=== PATIENT | female | born 1955 | race Caucasian/White ===

== ENCOUNTER 2017-08-18 21:26 | Inpatient (IN) | payer MEDICARE ==
[2017-08-18] MEDS ORDERED: FUROSEMIDE INJ/PF 20 MG/2 ML SDV IV ONE (21:34)
--- NOTE | 2017-08-18 21:37 | ER Document Report ---
ED General - General Stated Complaint: SHORTNESS OF BREATH Time Seen by Provider: 08/18/17 21:34 Cannot obtain history due to: Unstable vital signs Notes: Patient is a 61 year old female with a past medical history of hypertension, congestive heart failure, prior occurrences of flash pulmonary edema who presents in acute respiratory distress. Patient is currently traveling through the [facility], was becoming progressively more short of breath while in the vehicle. EMS was subsequently called the patient appear to be having significant difficulty breathing. On EMS arrival patient was noted to be saturating in the 50s with severe hypertension with systolics in the low 200s. She was placed on CPAP, Nitropaste was applied, and she was subsequently transported to the hospital. Additional history is unable to be obtained secondary to the patient's respiratory distress at time of arrival. - Related Data Allergies/Adverse Reactions: steroids Allergy (Uncoded 08/18/17 21:46) Past Medical History - General Information source: Patient, Emergency Med Personnel Cannot obtain history due to: Unstable vital signs - Social History Smoking Status: Never Smoker Frequency of alcohol use: None Drug Abuse: None Lives with: Spouse/Significant other Family History: Reviewed & Not Pertinent Review of Systems - Review of Systems Notes: Constitutional: Negative for fever. HENT: Negative for sore throat. Eyes: Negative for visual changes. Cardiovascular: Negative for chest pain. Respiratory: Positive for shortness of breath. Gastrointestinal: Negative for abdominal pain, vomiting or diarrhea. Genitourinary: Negative for dysuria. Musculoskeletal: Negative for back pain. Skin: Negative for rash. Neurological: Negative for headaches, weakness or numbness. 10 point ROS negative except as marked above and in HPI. Physical Exam - Vital signs Vitals: Resp Pulse Ox 22 H 100 08/18/17 21:27 08/18/17 21:27 Interpretation: Normal Notes: PHYSICAL EXAMINATION: GENERAL: Appears generally unwell, in moderate to severe respiratory distress on BiPAP HEAD: Atraumatic, normocephalic. EYES: Pupils equal round and reactive to light, extraocular movements intact, sclera anicteric, conjunctiva are normal. ENT: nares patent, oropharynx clear without exudates. Moist mucous membranes. NECK: Normal range of motion, supple without lymphadenopathy LUNGS: Tachypnea with respirations of 33-34 breaths per minute. Globally diminished air movement in all lung leos with scattered rales throughout. HEART: Regular rate and rhythm without murmurs ABDOMEN: Soft, nontender, normoactive bowel sounds. No guarding, no rebound. No masses appreciated. EXTREMITIES: Normal range of motion, 1+ pitting edema that is equal and symmetric in the bilateral lower extremities. No cyanosis. NEUROLOGICAL: No focal neurological deficits. Moves all extremities spontaneously and on command. PSYCH: Somewhat somnolent. SKIN: Warm, Dry, normal turgor, no rashes or lesions noted. Course - Re-evaluation Re-evalutation: 08/18/17 21:30 Patient presents in acute respiratory distress, initially saturating 50% on room air for EMS, found to be profoundly hypertensive at the time of their initial evaluation with initial systolic blood pressures in the low 200s. At time of presentation the patient was visibly tachypneic although apparently improved relative to her prior assessment on active BiPAP. She was immediately transitioned to our BiPAP. Initial systolic blood pressure 182. A 500 mcg bolus of nitroglycerin was pushed at the bedside. She has subsequently been started on a nitroglycerin infusion at 80 mcg/min. 20 mg of IV furosemide which is her normal home dosing has been pushed via IV. A bedside ultrasound was also be performed at time of patient's presentation and showed B-lines diffusely in all lung leos. Echocardiogram at bedside without evidence of pericardial effusion. 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 08/18/17 21:41 Patient has had marked improvement in her work of breathing, now sitting up with her eyes open on BiPAP states she feels much better after the nitroglycerin push was delivered. Her blood pressure is currently resting at 151 on 67. Lung sounds are already improving on BiPAP as and after the nitroglycerin infusion has been initiated. Will continue to monitor closely. 08/18/17 22:53 Patient continues to have markedly improved vital signs, current blood pressure 139 on 73 on 80 mcg/min of nitroglycerin infusion and we will hold the target for this pressure. She is satting 100% on 35% FiO2, current heart rate 64, respiratory rate between 23 and 25 breaths per minute on BiPAP. Initial labs were hemolyzed so we are waiting redraws. 08/18/17 23:17 On reassessment patient continues to be quite stable, tolerating BiPAP well, MetroLotion infusion has been weaned down to 65 mg/min her current blood pressure is in the 150s-160s systolic. Will continue to monitor closely. 08/19/17 01:00 The case has been discussed with the hospitalist who has accepted the patient for admission. She remained stable and appropriate at this time. - Vital Signs Vital signs: Temp Pulse Resp BP Pulse Ox 97.7 F 19 144/72 H 100 08/18/17 21:47 08/19/17 00:18 08/18/17 23:11 08/19/17 00:18 - Laboratory Result Diagrams: 08/18/17 21:47 08/18/17 22:43 Laboratory results interpreted by me: 08/18/17 08/18/17 08/18/17 21:47 22:22 22:43 RDW 14.7 H Seg Neutrophils % 83.8 H Lymphocytes % 11.3 L Sodium 149.5 H Potassium 3.4 L Chloride 110 H BUN 24 H Creatinine 1.30 H Est GFR ( Amer) 50 L Est GFR (Non-Af Amer) 41 L Glucose 179 H AST 91 H ALT 73 H NT-Pro-B Natriuret Pep Urine Protein 100 H 08/18/17 22:43 RDW Seg Neutrophils % Lymphocytes % Sodium Potassium Chloride BUN Creatinine Est GFR ( Amer) Est GFR (Non-Af Amer) Glucose AST ALT NT-Pro-B Natriuret Pep 5120 H Urine Protein - Diagnostic Test Radiology reviewed: Image reviewed, Reports reviewed Radiology results interpreted by me: 08/18/17 22:06 Chest x-ray: Cardiomegaly, bilateral edema right worse than left - EKG Interpretation by Me Additional EKG results interpreted by me: 08/18/17 22:06 Atrially paced complexes. T-wave inversions in the lateral leads. No ST elevations or depressions. QTC is 452. Critical Care Note - Critical Care Note Total time excluding time spent on procedures (mins): 40 Comments: Critical care time spent obtaining history from patient or surrogate, discussions with consultants, development of treatment plan with patient or surrogate, evaluation of patient's response to treatment, examination of patient , ordering and performing treatments and interventions, ordering and review of laboratory studies, re-evaluation of patient's condition, ordering and review of radiographic studies and review of old charts Discharge - Discharge Clinical Impression: Flash pulmonary edema, Respiratory distress, Hypertensive emergency Condition: Fair Disposition: ADMITTED INPATIENT Admitting Provider: Hospitalist Unit Admitted: [facility]
[2017-08-18] MEDS: NITROGLYCERIN/D5W 50 MG/250 ML RTUINJ IV PRN (21:42)
[2017-08-18 22:00] LABS: ABSOLUTE LYMPHOCYTES (AUTO) 0.7 10^3/uL (0.5-4.7); ABSOLUTE MONOCYTES (AUTO) 0.3 10^3/uL (0.1-1.4); ABSOLUTE NEUT (AUTO) 5.4 10^3/uL (1.7-8.2); BASOPHILS % (AUTO) 0.5 % (0-2); EOSINOPHILS % (AUTO) 0.2 % (0-6); HEMOGLOBIN 12.6 g/dL (12.0-15.5); LYMPHOCYTES % (AUTO) 11.3 % (13-45); MEAN CORPUSCULAR HEMOGLOBIN 30.7 pg (27.0-33.4); MEAN CORPUSCULAR HGB CONC 32.3 g/dL (32.0-36.0); MEAN CORPUSCULAR VOLUME 95 fl (80-97); MONOCYTES % (AUTO) 4.2 % (3-13); PLATELET COUNT 175 10^3/uL (150-450); RED BLOOD COUNT 4.11 10^6/uL (3.72-5.28); RED CELL DISTRIBUTION WIDTH 14.7 % (11.5-14.0); SEGMENTED NEUTROPHILS % (AUTO) 83.8 % (42-78); TOTAL CELLS COUNTED % (AUTO) 100 %; WHITE BLOOD COUNT 6.4 10^3/uL (4.0-10.5)
[2017-08-18 23:21] LABS: POTASSIUM 3.4 mmol/L (3.6-5.0)
[2017-08-18 23:22] LABS: BLOOD UREA NITROGEN 24 mg/dL (7-20); GLUCOSE 179 mg/dL (75-110)
[2017-08-18 23:23] LABS: ALANINE AMINOTRANSFERASE 73 U/L (9-52); ALBUMIN 3.7 g/dL (3.5-5.0); ALKALINE PHOSPHATASE 77 U/L (38-126); ANION GAP 14 (5-19); ASPARTATE AMINO TRANSFERASE 91 U/L (14-36); BILIRUBIN,DIRECT 0.3 mg/dL (0.0-0.4); BILIRUBIN,TOTAL 0.3 mg/dL (0.2-1.3); CARBON DIOXIDE 26 mmol/L (22-30); CHLORIDE 110 mmol/L (98-107); SODIUM 149.5 mmol/L (137-145); TOTAL PROTEIN 6.3 g/dL (6.3-8.2)
[2017-08-18 23:36] LABS: TROPONIN I 0.04 ng/mL
[2017-08-18 23:41] LABS: APPEARANCE,URINE SLIGHTLY-CLOUDY; BILIRUBIN,URINE NEGATIVE (NEGATIVE); COLOR,URINE YELLOW; GLUCOSE, URINE NEGATIVE (NEGATIVE); KETONES,URINE NEGATIVE (NEGATIVE); LEUKOCYTE ESTERASE,URINE NEGATIVE (NEGATIVE); NITRITE,URINE NEGATIVE (NEGATIVE); PROTEIN,URINE 100 mg/dL (NEGATIVE); URINE SPECIFIC GRAVITY 1.011; UROBILINOGEN,URINE NEGATIVE mg/dL (<2.0)
--- NOTE | 2017-08-19 00:17 | RADIOLOGY REPORT (SQ) ---
EXAM DESCRIPTION: Single view of the chest CLINICAL HISTORY: sob, blines on us COMPARISON: None. FINDINGS: Single frontal view of the chest. Atherosclerotic calcification of the thoracic aorta. Cardiomegaly. Dual-lead left-sided pacemaker. Pulmonary vascular congestion and bilateral interstitial opacities. Possible small bilateral pleural effusions. No acute osseous abnormalities. Upper abdominal soft tissues are unremarkable. IMPRESSION: 1. Cardiomegaly with pulmonary vascular congestion and possible mild interstitial edema. 2. Possible small bilateral pleural effusions.
[2017-08-19] MEDS ORDERED: CLOPIDOGREL BISULFATE 75 MG TABLET PO ONE (00:54)
--- NOTE | 2017-08-19 00:54 | PDOC H&P ---
History of Present Illness History of Present Illness: HAYLEY URENA is a 61 year old black female patient with multiple comorbidities including CHF, HLD, HTN, asthma and coronary artery disease status post 3 stent placement, brought by EMS for acute severe respiratory distress. By the time EMS arrived patient was in severe respiratory distress and saturates around 50% on room air. With impression of flash pulmonary edema patient started on nitroglycerin drip, Lasix and BiPAP and patient shows marked improvement. Patient also found to have markedly elevated blood pressure with systolic of 210. Her initial blood work shows BNP of 5500 and her chest x-rays compatible with pulmonary vascular congestion. There is no report of chest pain, cough, fever, nausea, vomiting, diarrhea or urinary complaints. No headache, dizziness or blurry vision. Past Medical History Cardiac Medical History: Reports: Atrial Fibrillation, Congestive Heart Failure Past Surgical History Past Surgical History: Reports: None Social History Lives with: Spouse/Significant other Smoking Status: Never Smoker Hx Recreational Drug Use: No Drugs: None - Advance Directive Resuscitation Status: Full Code Family History Family History: Reviewed & Not Pertinent, Hypertension Parental Family History Reviewed: Yes Children Family History Reviewed: Yes Sibling(s) Family History Reviewed.: Yes Medication/Allergy Allergies/Adverse Reactions: steroids Allergy (Uncoded 08/18/17 21:46) Review of Systems Constitutional: PRESENT: as per HPI Eyes: PRESENT: as per HPI Ears: PRESENT: as per HPI Cardiovascular: PRESENT: as per HPI Respiratory: PRESENT: as per HPI Gastrointestinal: PRESENT: as per HPI Neurological: PRESENT: as per HPI Physical Exam Vital Signs: Temp Pulse Resp BP Pulse Ox 97.7 F 21 H 144/72 H 100 08/18/17 21:47 08/18/17 23:11 08/18/17 23:11 08/18/17 23:11 Intake & Output 08/17/17 08/18/17 08/19/17 06:59 06:59 06:59 Weight 74.5 kg General appearance: PRESENT: other - Moderate distress Head exam: PRESENT: atraumatic, normocephalic Respiratory exam: PRESENT: decreased breath sounds Cardiovascular exam: PRESENT: gallop, tachycardia GI/Abdominal exam: PRESENT: normal bowel sounds, soft. ABSENT: distended, guarding, mass, organolmegaly, rebound, tenderness Neurological exam: PRESENT: alert, awake, oriented to time, oriented to situation Psychiatric exam: PRESENT: normal mood Results Laboratory Results: 08/18/17 21:47 08/18/17 22:43 08/18/17 08/18/17 08/18/17 21:47 21:47 22:22 WBC 6.4 RBC 4.11 Hgb 12.6 Hct 39.0 MCV 95 MCH 30.7 MCHC 32.3 RDW 14.7 H Plt Count 175 Seg Neutrophils % 83.8 H Lymphocytes % 11.3 L Monocytes % 4.2 Eosinophils % 0.2 Basophils % 0.5 Absolute Neutrophils 5.4 Absolute Lymphocytes 0.7 Absolute Monocytes 0.3 Absolute Eosinophils 0.0 Absolute Basophils 0.0 Sodium Cancelled Potassium Cancelled Chloride Cancelled Carbon Dioxide Cancelled Anion Gap Cancelled BUN Cancelled Creatinine Cancelled Est GFR ( Amer) Cancelled Est GFR (Non-Af Amer) Cancelled Glucose Cancelled Calcium Cancelled Total Bilirubin Cancelled AST Cancelled ALT Cancelled Alkaline Phosphatase Cancelled Total Protein Cancelled Albumin Cancelled Urine Color YELLOW Urine Appearance SLIGHTLY-CLOUDY Urine pH 5.0 Ur Specific [place] 1.011 Urine Protein 100 H Urine Glucose (UA) NEGATIVE Urine Ketones NEGATIVE Urine Blood NEGATIVE Urine Nitrite NEGATIVE Ur Leukocyte Esterase NEGATIVE Urine WBC (Auto) 2 Urine RBC (Auto) 2 08/18/17 22:43 WBC RBC Hgb Hct MCV MCH MCHC RDW Plt Count Seg Neutrophils % Lymphocytes % Monocytes % Eosinophils % Basophils % Absolute Neutrophils Absolute Lymphocytes Absolute Monocytes Absolute Eosinophils Absolute Basophils Sodium 149.5 H Potassium 3.4 L Chloride 110 H Carbon Dioxide 26 Anion Gap 14 BUN 24 H Creatinine 1.30 H Est GFR ( Amer) 50 L Est GFR (Non-Af Amer) 41 L Glucose 179 H Calcium 9.0 Total Bilirubin 0.3 AST 91 H ALT 73 H Alkaline Phosphatase 77 Total Protein 6.3 Albumin 3.7 Urine Color Urine Appearance Urine pH Ur Specific [place] Urine Protein Urine Glucose (UA) Urine Ketones Urine Blood Urine Nitrite Ur Leukocyte Esterase Urine WBC (Auto) Urine RBC (Auto) 08/18/17 08/18/17 21:47 22:43 Troponin I Cancelled 0.040 NT-Pro-B Natriuret Pep Cancelled 5120 H Impressions: Chest X-Ray 08/18/17 21:35 IMPRESSION: 1. Cardiomegaly with pulmonary vascular congestion and possible mild interstitial edema. 2. Possible small bilateral pleural effusions. Assessment & Plan - Diagnosis (1) Acute on chronic systolic congestive heart failure, NYHA class 3 Is this a current diagnosis for this admission?: Yes Plan: Patient has been on Lasix, carvedilol, aspirin, simvastatin. BiPAP Echo, daily weight and strict input output (2) Flash pulmonary edema Is this a current diagnosis for this admission?: Yes Plan: As a #1 (3) Acute respiratory failure Qualifiers: Respiratory failure complication: hypoxia Qualified Code(s): J96.01 - Acute respiratory failure with hypoxia Is this a current diagnosis for this admission?: Yes Plan: Supplemental oxygen and BiPAP (4) Hypertensive emergency Is this a current diagnosis for this admission?: Yes Plan: One of her medication is clonidine so may be patient might have rebound hypertension. Now her blood pressure is trending down after she started on nitro drip - Time Time Spent: 30 to 50 Minutes - Inpatient Certification Medical Necessity: Need Close Monitoring Due to Risk of Patient Decompensation
[2017-08-19 05:39] LABS: ANION GAP 11 (5-19); BLOOD UREA NITROGEN 24 mg/dL (7-20); CARBON DIOXIDE 29 mmol/L (22-30); CHLORIDE 110 mmol/L (98-107); GLUCOSE 116 mg/dL (75-110); POTASSIUM 3.7 mmol/L (3.6-5.0)
[2017-08-19] MEDS: FUROSEMIDE INJ/PF 40 MG/4 ML SDV IV SCH ×2 (10:15→21:09)
[2017-08-19] MEDS: ASPIRIN 81 MG TABLET, ENT COATED PO SCH (10:16)
[2017-08-19] MEDS: CARVEDILOL 12.5 MG TABLET PO SCH ×2 (10:16→21:08)
[2017-08-19] MEDS: ENOXAPARIN SODIUM INJ 40 MG/0.4 ML DISP.SYRIN SUBCUT SCH (10:16)
[2017-08-19] MEDS ORDERED: IPRATROPIUM/ALBUTEROL 0.5-2.5 MG/3 ML AMPUL NEB PRN (10:22)
[2017-08-19] MEDS: NITROGLYCERIN/D5W 50 MG/250 ML RTUINJ IV PRN (13:50)
--- NOTE | 2017-08-19 16:19 | EKG REPORT ---
SEVERITY:- ABNORMAL ECG - ATRIAL-PACED COMPLEXES VENTRICULAR PREMATURE COMPLEX PROBABLE LVH WITH SECONDARY REPOL ABNRM : Confirmed by: Lulu Alexander 19-Aug-2017 16:17:46
[2017-08-20 07:08] LABS: ANION GAP 10 (5-19); BLOOD UREA NITROGEN 17 mg/dL (7-20); CALCIUM 8.7 mg/dL (8.4-10.2); CARBON DIOXIDE 31 mmol/L (22-30); CHLORIDE 107 mmol/L (98-107); GLUCOSE 123 mg/dL (75-110); POTASSIUM 3.3 mmol/L (3.6-5.0); SODIUM 148.1 mmol/L (137-145)
[2017-08-20] MEDS: ENOXAPARIN SODIUM INJ 40 MG/0.4 ML DISP.SYRIN SUBCUT SCH (11:37)
[2017-08-20] MEDS: ASPIRIN 81 MG TABLET, ENT COATED PO SCH (11:38)
[2017-08-20] MEDS: CARVEDILOL 12.5 MG TABLET PO SCH ×2 (11:38→21:36)
[2017-08-20] MEDS: FUROSEMIDE INJ/PF 40 MG/4 ML SDV IV SCH ×2 (11:38→21:13)
[2017-08-20] MEDS ORDERED: (PENDING PHARMACY ID) (Fexofenadine Hcl [Allegra Allergy] 180 MG) PO PRN (11:51)
[2017-08-20] MEDS ORDERED: ALBUTEROL SULFATE HFA (90 MCG/PUFF) 8 GM MDI (1 MDI/ER DISP) IH PRN (11:51)
[2017-08-20] MEDS ORDERED: FLUTICASONE NASAL SPRAY 50 MCG/SPRY 120 SPRAY/16 GM NASL PRN (11:51)
[2017-08-20] MEDS ORDERED: ALBUTEROL SULFATE HFA (90 MCG/PUFF) 200 PUFF/8.5 GM MDI IH PRN (12:19)
[2017-08-20] MEDS ORDERED: CLONIDINE HCL 0.1 MG TABLET PO ONE (12:30)
[2017-08-20] MEDS ORDERED: SACUBITRIL/VALSARTAN 49 MG/51 MG TABLET PO ONE (12:30)
[2017-08-20] MEDS ORDERED: LORATADINE 10 MG TABLET PO PRN (12:43)
[2017-08-20] MEDS ORDERED: ISOSORBIDE MONONITRATE 60 MG TAB.ER.24H PO ONE (13:00)
--- NOTE | 2017-08-20 15:55 | PDOC PROGRESS REPORT ---
Subjective Progress Note for:: 08/20/17 Subjective:: Patient was admitted with difficulty breathing and shortness of breath. She has been on nitroglycerin drip due to the decompensated CHF. Her blood pressure was also elevated at 210 height B and P was 5500. She feels much better and her blood pressure is also better controlled she however still on the Tridil drip and is to be discontinued today she will be started on her home medications. Echocardiogram is still pending A Reason For Visit: HEART FAILURE, PULMONARY EDEMA, ACUTE RESPIRATORY Physical Exam Vital Signs: Temp Pulse Resp BP Pulse Ox 98.8 F 69 18 168/69 H 100 08/20/17 12:26 08/20/17 12:26 08/20/17 12:26 08/20/17 06:00 08/20/17 12:26 Intake & Output 08/19/17 08/20/17 08/21/17 06:59 06:59 06:59 Intake Total 137 1017 0 Output Total 600 1000 Balance 137 417 -1000 Weight 71.6 kg 71.5 kg General appearance: PRESENT: no acute distress, well-nourished Head exam: PRESENT: atraumatic, normocephalic Eye exam: PRESENT: conjunctiva pink, EOMI, PERRLA. ABSENT: scleral icterus Ear exam: PRESENT: normal external ear exam Mouth exam: PRESENT: moist, tongue midline Neck exam: ABSENT: carotid bruit, JVD, lymphadenopathy, thyromegaly Respiratory exam: PRESENT: crackles - Bibasal. ABSENT: rales, rhonchi, wheezes Cardiovascular exam: PRESENT: RRR. ABSENT: diastolic murmur, rubs, systolic murmur Pulses: PRESENT: normal dorsalis pedis pul Vascular exam: PRESENT: normal capillary refill GI/Abdominal exam: PRESENT: normal bowel sounds, soft. ABSENT: distended, guarding, mass, organolmegaly, rebound, tenderness Rectal exam: PRESENT: deferred Extremities exam: PRESENT: full ROM. ABSENT: calf tenderness, clubbing, pedal edema Neurological exam: PRESENT: alert, awake, oriented to person, oriented to place , oriented to time, oriented to situation, CN II-XII grossly intact. ABSENT: motor sensory deficit Psychiatric exam: PRESENT: appropriate affect, normal mood. ABSENT: homicidal ideation, suicidal ideation Skin exam: PRESENT: dry, intact, warm. ABSENT: cyanosis, rash Results Laboratory Results: 08/20/17 05:59 08/20/17 05:59 Sodium 148.1 H Potassium 3.3 L Chloride 107 Carbon Dioxide 31 H Anion Gap 10 BUN 17 Creatinine 0.98 Est GFR ( Amer) > 60 Est GFR (Non-Af Amer) 57 L Glucose 123 H Calcium 8.7 Impressions: Chest X-Ray 08/18/17 21:35 IMPRESSION: 1. Cardiomegaly with pulmonary vascular congestion and possible mild interstitial edema. 2. Possible small bilateral pleural effusions. Assessment & Plan - Time Time Spent with patient: 15-24 minutes Medications reviewed and adjusted accordingly: Yes Anticipated discharge: Home Within: within 24 hours - Inpatient Certification Based on my medical assessment, after consideration of the patient's comorbidities, presenting symptoms, or acuity I expect that the services needed warrant INPATIENT care.: Yes Medical Necessity: Need Close Monitoring Due to Risk of Patient Decompensation, Risk of Diagnosis Which Will Require Inpatient Eval/Care/Monitoring - Plan Summary Plan Summary: 1. Acute on chronic systolic congestive heart failure NYHA class III will continue diuresis and follow-up on echo result. 2. Acute hypoxemic respiratory failure secondary to above patient is currently off BiPAP as well as oxygen 3. Hypertensive urgency related to the pulmonary vascular congestion blood pressure is now controlled 4. If patient continues to improve will likely discharge in a.m. 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
--- NOTE | 2017-08-20 16:43 | XCELERA REPORT ---
[address] [address] Transthoracic Echocardiogram Report Name: HAYLEY URENA Age: 61 yrs Gender: Female : 1955 Patient Status: Inpatient Patient Location: [address] [place] [address] Study Date: 08/20/2017 10:27 AM Procedure: A two-dimensional transthoracic echocardiogram with color flow and Doppler was performed. Study Quality: Fair. Reason For Study: CHF History: CHF. Ordering Physician: CAROL BROOKS Performed By: Greer Morgan Interpretation Summary The left ventricle is mildly dilated. There is normal left ventricular wall thickness. LV EF is 35% to 40% Left ventricular systolic function is moderately reduced. Doppler measurements suggest normal left ventricular diastolic function There is moderate global hypokinesis of the left ventricle. The right ventricle is not well visualized secondary to technical limitations The left atrial size is normal. There is no evidence of mitral valve prolapse. There is no mitral valve stenosis. There is a moderate amount of mitral regurgitation There is no aortic valve stenosis There is no LVOT obstruction. There is a mild amount of aortic regurgitation There is a mild to moderate amount of tricuspid regurgitation There is a mild amount of pulmonic regurgitation There is no pericardial effusion. MMode/2D Measurements & Calculations RVDd: 2.9 cm LVIDd: 6.2 cmFS: 34.1 % Ao root diam: 1.9 cm IVSd: 1.1 cm LVIDs: 4.1 cmEDV(Teich): 193.5 ml Ao root area: 2.9 cm2 LVPWd: 1.2 cmESV(Teich): 73.5 ml EF(Teich): 62.0 % LVOT diam: 1.4 cm LVOT area: 1.6 cm2 Doppler Measurements & Calculations MV E max teofilo: MV dec slope: Ao V2 max: AI max teofilo: 108.5 cm/sec 139.6 cm/sec 323.4 cm/sec MV A max teofilo: 578.7 cm/sec2 Ao max P.8 mmHgAI max P.7 cm/sec MV dec time: 41.8 mmHg MV E/A: 2.1 0.19 sec BARBARA(V,D): 1.1 cm2 AI dec slope: 178.0 cm/sec2 AI P1/2t: 532.1 msec LV V1 max PG: PA V2 max: PI max teofilo: TR max teofilo: 3.5 mmHg 64.5 cm/sec 223.0 cm/sec 348.9 cm/sec LV V1 max: PA max P.7 mmHgPI max PG: TR max P.4 cm/sec 19.9 mmHg 49.1 mmHg PI dec slope: 162.8 cm/sec2 Left Ventricle The left ventricle is mildly dilated. There is normal left ventricular wall thickness. LV EF is 35% to 40%. Left ventricular systolic function is moderately reduced. Doppler measurements suggest normal left ventricular diastolic function. There is moderate global hypokinesis of the left ventricle. There is no thrombus. Right Ventricle The right ventricle is not well visualized secondary to technical limitations. Atria The right atrium is normal. The left atrial size is normal. Mitral Valve There is no evidence of mitral valve prolapse. There is no vegetation seen on the mitral valve. There is no mitral valve stenosis. There is a moderate amount of mitral regurgitation. Aortic Valve There is no aortic valvular vegetation. There is no aortic valve stenosis. There is no LVOT obstruction. There is a mild amount of aortic regurgitation. Tricuspid Valve There is no tricuspid stenosis. There is a mild to moderate amount of tricuspid regurgitation. Pulmonic Valve There is no pulmonic valvular stenosis. There is a mild amount of pulmonic regurgitation. Great Vessels The aortic root is not well visualized but is probably normal size. Effusions There is no pericardial effusion. : CAROL BROOKS > Sabra Rivera
[2017-08-20] MEDS: SACUBITRIL/VALSARTAN 49 MG/51 MG TABLET PO SCH (21:11)
[2017-08-20] MEDS: CLONIDINE HCL 0.1 MG TABLET PO SCH (21:12)
[2017-08-20] MEDS ORDERED: SIMVASTATIN 40 MG TABLET PO SCH (22:00)
[2017-08-20] MEDS ORDERED: CARVEDILOL 12.5 MG TABLET PO SCH (22:00)
[2017-08-21 06:56] LABS: ANION GAP 11 (5-19); BLOOD UREA NITROGEN 17 mg/dL (7-20); CALCIUM 8.2 mg/dL (8.4-10.2); CARBON DIOXIDE 33 mmol/L (22-30); CHLORIDE 104 mmol/L (98-107); GLUCOSE 88 mg/dL (75-110); POTASSIUM 3.2 mmol/L (3.6-5.0); SODIUM 147.8 mmol/L (137-145)
[2017-08-21] MEDS ORDERED: FUROSEMIDE 40 MG TABLET PO SCH (08:00)
[2017-08-21] MEDS ORDERED: ISOSORBIDE MONONITRATE 60 MG TAB.ER.24H PO SCH (10:00)
[2017-08-21] MEDS ORDERED: (PENDING PHARMACY ID) (Potassium Chloride [K-Tab Er] 20 MEQ) PO SCH (10:00)
[2017-08-21] MEDS ORDERED: MAGNESIUM OXIDE 400 MG TABLET PO SCH (10:00)
[2017-08-21] MEDS ORDERED: ASPIRIN 81 MG TABLET, ENT COATED PO SCH (10:00)
[2017-08-21] MEDS ORDERED: CLOPIDOGREL BISULFATE 75 MG TABLET PO SCH (10:00)
[2017-08-21] MEDS ORDERED: POTASSIUM CHLORIDE 10 MEQ TABLET.SA PO SCH (10:00)
--- NOTE | 2017-08-21 10:01 | PDOC DISCHARGE SUMMARY ---
General - Admit/Disc Date/PCP Admission Date/Primary Care Provider: 08/19/17 00:43 Discharge Date: 08/21/17 - Discharge Diagnosis (1) Cardiomyopathy Is this a current diagnosis for this admission?: Yes (2) Acute on chronic systolic congestive heart failure, NYHA class 3 Is this a current diagnosis for this admission?: Yes (3) Acute respiratory failure Is this a current diagnosis for this admission?: Yes (4) Flash pulmonary edema Is this a current diagnosis for this admission?: Yes (5) Hypertensive emergency Is this a current diagnosis for this admission?: Yes (6) Hypokalemia Is this a current diagnosis for this admission?: Yes Summary: Replaced - Additional Information Resuscitation Status: Full Code Discharge Diet: Cardiac Discharge Activity: Activity As Tolerated, Balance Activity w/Rest, Weigh Daily Home Medications: Albuterol Sulfate [Ventolin Hfa] 2 puff IH QIDP PRN 08/19/17 Aspirin [Aspirin EC] 81 mg PO DAILY 08/19/17 Carvedilol [Coreg 25 mg Tablet] 25 mg PO Q12 08/19/17 Clonidine HCl [Catapres 0.1 mg Tablet] 0.1 mg PO Q12 08/19/17 Clopidogrel Bisulfate [Clopidogrel] 75 mg PO DAILY 08/19/17 Fexofenadine HCl [Shana Allergy] 180 mg PO DAILYP PRN 08/19/17 Fluticasone Propionate [Flonase Nasal [place] 50 Mcg/[place] 16 gm] 2 sprays NASL DAILYP PRN 08/19/17 Furosemide [Lasix 40 mg Tablet] 40 mg PO QAM 08/19/17 Isosorbide Mononitrate [Imdur 60 mg Tablet.er] 60 mg PO DAILY 08/19/17 Magnesium Oxide [Mag-Ox 400 mg Tablet] 400 mg PO DAILY 08/19/17 Potassium Chloride [K-Tab ER] 20 meq PO DAILY 08/19/17 Sacubitril/Valsartan [Entresto 49 mg-51 mg Tablet] 1 each PO BID 08/19/17 Simvastatin [Zocor 40 mg Tablet] 40 mg PO QHS 08/19/17 History of Present Illness Patient complains of: Patient was admitted with difficulty breathing and shortness of breath. She was brought to the emergency room in severe acute respiratory distress and found to be hypoxemic with oxygen saturation around 50% . History of Present Illness: HAYLEY URENA is a 61 year old female patient with multiple comorbidities including CHF, HLD, HTN, asthma and coronary artery disease status post 3 stent placement, brought by EMS for acute severe respiratory distress. By the time EMS arrived patient was in severe respiratory distress and saturates around 50% on room air. With impression of flash pulmonary edema patient started on nitroglycerin drip, Lasix and BiPAP and patient shows marked improvement. Patient also found to have markedly elevated blood pressure with systolic of 210. Her initial blood work shows BNP of 5500 and her chest x-rays compatible with pulmonary vascular congestion. There is no report of chest pain, cough, fever, nausea, vomiting, diarrhea or urinary complaints. No headache, dizziness or blurry vision. Hospital Course Hospital Course: Patient was admitted with difficulty breathing and shortness of breath. She was brought to the emergency room in severe acute respiratory distress and found to be hypoxemic with oxygen saturation around 50%. She was treated for acute pulmonary edema diuresis and supportive ventilation with BiPAP. Initial systolic blood pressure was more than 210. This x-ray was also compatible with pulmonary vascular congestion. Patient's respiratory status gradually improved with the above measures. She was treated with Tridil with appropriate response. Echocardiogram done reveals a LV EF of 35-40% with systolic function moderately reduced. There is moderate global hypokinesis of the left ventricle as well as moderate amount of mitral regurgitation and pulmonary hypertension. Patient is followed closely by motor scooter mechanic in [place] and she has improved from a acute flash pulmonary edema is felt at this time that she will be discharged home for follow-up with a motor scooter mechanic in 3 days. Her blood pressure is better controlled and have instructed her to increase her Lasix to twice a day until reviewed by her motor scooter mechanic in a few days. Further adjustments of her medications should be made at that time. Physical Exam Vital Signs: Temp Pulse Resp BP Pulse Ox 98.1 F 60 24 H 142/52 H 96 08/21/17 07:42 08/21/17 07:42 08/21/17 07:42 08/21/17 07:42 08/21/17 07:42 Intake & Output 08/20/17 08/21/17 08/22/17 06:59 06:59 06:59 Intake Total 1017 779 Output Total 600 1000 Balance 417 -221 Weight 71.5 kg 69.6 kg General appearance: PRESENT: no acute distress, well-developed, well-nourished Head exam: PRESENT: atraumatic, normocephalic Eye exam: PRESENT: conjunctiva pink, EOMI, PERRLA. ABSENT: scleral icterus Ear exam: PRESENT: normal external ear exam Mouth exam: PRESENT: moist, tongue midline Neck exam: ABSENT: carotid bruit, JVD, lymphadenopathy, thyromegaly Respiratory exam: PRESENT: clear to auscultation jagdeep. ABSENT: rales, rhonchi, wheezes Cardiovascular exam: PRESENT: RRR. ABSENT: diastolic murmur, rubs, systolic murmur Pulses: PRESENT: normal dorsalis pedis pul Vascular exam: PRESENT: normal capillary refill GI/Abdominal exam: PRESENT: normal bowel sounds, soft. ABSENT: distended, guarding, mass, organolmegaly, rebound, tenderness Rectal exam: PRESENT: deferred Extremities exam: PRESENT: full ROM. ABSENT: calf tenderness, clubbing, pedal edema Neurological exam: PRESENT: alert, awake, oriented to person, oriented to place , oriented to time, oriented to situation, CN II-XII grossly intact. ABSENT: motor sensory deficit Psychiatric exam: PRESENT: appropriate affect, normal mood. ABSENT: homicidal ideation, suicidal ideation Skin exam: PRESENT: dry, intact, warm. ABSENT: cyanosis, rash Results Laboratory Results: 08/21/17 05:30 08/21/17 05:30 Sodium 147.8 H Potassium 3.2 L Chloride 104 Carbon Dioxide 33 H Anion Gap 11 BUN 17 Creatinine 0.86 Est GFR ( Amer) > 60 Est GFR (Non-Af Amer) > 60 Glucose 88 Calcium 8.2 L 08/21/17 05:30 NT-Pro-B Natriuret Pep 6230 H Impressions: Chest X-Ray 08/18/17 21:35 IMPRESSION: 1. Cardiomegaly with pulmonary vascular congestion and possible mild interstitial edema. 2. Possible small bilateral pleural effusions. Qualifiers - * PATIENT BEING DISCHARGED WITH ANY OF THE FOLLOWING DIAGNOSIS: Heart Failure HF Pt being discharged on ACEI for LVEF less than 40%?: Yes HF Pt being discharged on ARBS for LVEF less than 40%?: No Reason(s) for not prescribing ARBS:: Not indicated HF Pt with Afib discharged with Warfarin?: No Reason(s) for not prescribing Warfarin:: Not indicated HF Pt discharged on evidence-based Beta Diaz:: Yes Plan Time Spent: Greater than 30 Minutes
[2017-08-21] MEDS: ASPIRIN 81 MG TABLET, ENT COATED PO SCH (10:16)
[2017-08-21] MEDS: CARVEDILOL 12.5 MG TABLET PO SCH (10:16)
[2017-08-21] MEDS: ENOXAPARIN SODIUM INJ 40 MG/0.4 ML DISP.SYRIN SUBCUT SCH (10:16)
[2017-08-21] MEDS: CLONIDINE HCL 0.1 MG TABLET PO SCH (10:16)
[2017-08-21] MEDS: SACUBITRIL/VALSARTAN 49 MG/51 MG TABLET PO SCH (10:16)
[2017-08-21] MEDS: FUROSEMIDE INJ/PF 40 MG/4 ML SDV IV SCH (10:18)
[2017-08-21 10:44] VITALS: BP 164/78
== END 2017-08-21 11:07 | disposition home or self-care (01) | DRG 291 ==
LOC: ER 21:26 → EH 08-19 00:43 → 3W 08-19 03:45
PROVIDERS: ADMIT Internal Medicine; ATTEND Internal Medicine
PROC: 5A09457 Assistance with Respiratory Ventilation, 24-96 Consecutive Hours, Continuous Positive Airway Pressure (ICD-10-PCS; principal; 2017-08-18)
DX: I11.0 Hypertensive heart disease with heart failure (principal); J96.01 Acute respiratory failure with hypoxia; I16.1 Hypertensive emergency; I50.23 Acute on chronic systolic (congestive) heart failure; I25.10 Atherosclerotic heart disease of native coronary artery without angina pectoris; Z95.5 Presence of coronary angioplasty implant and graft; I48.91 Unspecified atrial fibrillation; Z82.49 Family history of ischemic heart disease and other diseases of the circulatory system; E78.5 Hyperlipidemia, unspecified; E87.6 Hypokalemia; I42.9 Cardiomyopathy, unspecified; Z79.82 Long term (current) use of aspirin; Z79.899 Other long term (current) drug therapy; J45.909 Unspecified asthma, uncomplicated; I34.0 Nonrheumatic mitral (valve) insufficiency; I27.20 Pulmonary hypertension, unspecified
CPT/HCPCS: 36415; 71045; 80048; 80053; 81001; 83880; 84484; 85025; 93005; 93010; 93306; 94640; 94660; 96365; 96375; 99291; J1650; J1940; J3490; J7620

== ENCOUNTER 2017-10-04 08:59 | Observation (INO) | payer MEDICARE, OTHER ==
[2017-10-04] MEDS ORDERED: ASPIRIN 81 MG TABLET, CHEWABLE PO ONE (09:10)
--- NOTE | 2017-10-04 09:19 | ER Document Report ---
ED General - General Stated Complaint: DIFFICULTY BREATHING Time Seen by Provider: 10/04/17 09:10 Mode of Arrival: Medic Information source: Patient, Emergency Med Personnel Notes: 61-year-old female with a history of congestive heart failure brought to the emergency department by EMS for shortness of breath. EMS noted that the patient was having diffuse rails on arrival. She was struggling to breathe. She is placed on CPAP, given Nitropaste and Vasotec. Patient was admitted to the hospital at the end of July for similar symptoms. Patient denies any chest pain, fever, chills, nausea, vomiting, diaphoresis. TRAVEL OUTSIDE OF THE [place] IN LAST 30 DAYS: No - HPI Onset: Just prior to arrival Onset/Duration: Sudden Quality of pain: No pain Severity: None Pain Level: Denies Associated symptoms: Shortness of breath Exacerbated by: Denies Relieved by: Denies Similar symptoms previously: Yes Recently seen / treated by doctor: Yes - Related Data Allergies/Adverse Reactions: steroids Allergy (Uncoded 08/18/17 21:46) Past Medical History - Social History Smoking Status: Never Smoker Family History: Reviewed & Not Pertinent - Past Medical History Cardiac Medical History: Reports: Hx Atrial Fibrillation, Hx Congestive Heart Failure Renal/ Medical History: Denies: Hx Peritoneal Dialysis Past Surgical History: Reports: Hx Cardiac Surgery - stents x3, pacemaker Review of Systems - Review of Systems Constitutional: No symptoms reported EENT: No symptoms reported Cardiovascular: No symptoms reported Respiratory: Short of breath Gastrointestinal: No symptoms reported Genitourinary: No symptoms reported Female Genitourinary: No symptoms reported Musculoskeletal: No symptoms reported Skin: No symptoms reported Hematologic/Lymphatic: No symptoms reported Neurological/Psychological: No symptoms reported -: Yes All other systems reviewed and negative Physical Exam - Vital signs Vitals: Resp Pulse Ox 27 H 100 10/04/17 09:10 10/04/17 09:10 Interpretation: Normal - Notes Notes: PHYSICAL EXAMINATION: GENERAL: Well-appearing, well-nourished and in no acute distress. HEAD: Atraumatic, normocephalic. EYES: Pupils equal round and reactive to light, extraocular movements intact, conjunctiva are normal. ENT: Nares patent, oropharynx clear without exudates. Moist mucous membranes. NECK: Normal range of motion, supple without lymphadenopathy LUNGS: Diffuse rales and rhonchi. HEART: Regular rate and rhythm without murmurs ABDOMEN: Soft, nontender, nondistended abdomen. No guarding, no rebound. No masses appreciated. Female : deferred Musculoskeletal: Normal range of motion, no pitting or edema. No cyanosis. NEUROLOGICAL: Cranial nerves grossly intact. Normal speech, normal gait. Normal sensory, motor exams PSYCH: Normal mood, normal affect. SKIN: Warm, Dry, normal turgor, no rashes or lesions noted. Course - Re-evaluation Re-evalutation: 10/04/17 11:20 Patient was given vasotec and had nitro paste applied by EMS. Patient placed on BIPAP in the ED. Vitals stable. Patient says she's feeling better. Shortness of breath has resolved. No lower extremity edema on exam but patient did have diffuse rales and rhonchi. Chest xray shows pulmonary edema. Radiologist says cannot rule out pneumonia. Patient denies fever, chills, rhinorrhea, productive cough. I feel that this is more of a CHF exacerbation than pneumonia at this time. I contacted the hospitalist for admission. Would like 40mg of lasix given. Patient stable. - Vital Signs Vital signs: Temp Pulse Resp BP Pulse Ox 97.5 F 20 104/92 H 100 10/04/17 09:51 10/04/17 10:31 10/04/17 10:31 10/04/17 10:31 - Laboratory Result Diagrams: 10/04/17 09:15 10/04/17 09:15 Laboratory results interpreted by me: 10/04/17 10/04/17 10/04/17 09:15 09:15 09:15 RDW 16.3 H Chloride 109 H BUN 34 H Creatinine 1.47 H Est GFR ( Amer) 43 L Est GFR (Non-Af Amer) 36 L Glucose 197 H AST 90 H NT-Pro-B Natriuret Pep 2010 H - EKG Interpretation by Me Additional EKG results interpreted by me: 10/04/17 09:40 EKG: Ventricular rate 71, TX interval 172, QRS duration 78, QTc 466, paced rhythm. Premature ventricular complexes appreciated. T wave inversion in leads I, 2, aVF, V4, V5, V6 are similar to EKG done on 08/18/17 Discharge - Discharge Clinical Impression: CHF (congestive heart failure) Qualifiers: Heart failure type: unspecified Heart failure chronicity: acute on chronic Qualified Code(s): I50.9 - Heart failure, unspecified Renal failure Qualifiers: Renal failure chronicity: acute Acute renal failure type: unspecified Qualified Code(s): N17.9 - Acute kidney failure, unspecified Condition: Stable Disposition: ADMITTED INPATIENT Admitting Provider: Hospitalist Unit Admitted: [facility]
[2017-10-04 09:33] LABS: ABSOLUTE LYMPHOCYTES (AUTO) 0.7 10^3/uL (0.5-4.7); ABSOLUTE MONOCYTES (AUTO) 0.2 10^3/uL (0.1-1.4); ABSOLUTE NEUT (AUTO) 3.3 10^3/uL (1.7-8.2); BASOPHILS % (AUTO) 0.6 % (0-2); EOSINOPHILS % (AUTO) 0.4 % (0-6); HEMATOCRIT 38.9 % (36.0-47.0); HEMOGLOBIN 12.7 g/dL (12.0-15.5); LYMPHOCYTES % (AUTO) 16.2 % (13-45); MEAN CORPUSCULAR HEMOGLOBIN 31.2 pg (27.0-33.4); MEAN CORPUSCULAR HGB CONC 32.8 g/dL (32.0-36.0); MEAN CORPUSCULAR VOLUME 95 fl (80-97); MONOCYTES % (AUTO) 5.6 % (3-13); PLATELET COUNT 175 10^3/uL (150-450); RED BLOOD COUNT 4.08 10^6/uL (3.72-5.28); RED CELL DISTRIBUTION WIDTH 16.3 % (11.5-14.0); SEGMENTED NEUTROPHILS % (AUTO) 77.2 % (42-78); TOTAL CELLS COUNTED % (AUTO) 100 %; WHITE BLOOD COUNT 4.3 10^3/uL (4.0-10.5)
--- NOTE | 2017-10-04 09:38 | RADIOLOGY REPORT (SQ) ---
EXAM DESCRIPTION: CHEST SINGLE VIEW COMPLETED DATE/TIME: 10/04/2017 9:27 am REASON FOR STUDY: shortness of breath COMPARISON: 08/18/2017 EXAM PARAMETERS: NUMBER OF VIEWS: One view. TECHNIQUE: Single frontal radiographic view of the chest acquired. RADIATION DOSE: NA LIMITATIONS: None. FINDINGS: LUNGS AND PLEURA: Asymmetrical opacity right lower lung zone. More prominent than on the previous chest x-ray. Unclear whether this represents asymmetrical edema or developing infiltrate. MEDIASTINUM AND HILAR STRUCTURES: No masses. Contour normal. HEART AND VASCULAR STRUCTURES: Moderate cardiomegaly essentially unchanged. BONES: No acute findings. HARDWARE: Pacing electrodes intact. OTHER: No other significant finding. IMPRESSION: Moderate cardiomegaly asymmetrical opacity right lower lung zone. More prominent than o n the previous chest x-ray. Asymmetrical pulmonary edema or developing infiltrate included in the di fferential. TECHNICAL DOCUMENTATION: JOB ID: [id number] [employer]- All Rights Reserved Reading location - IP/workstation name: [email or web address]
[2017-10-04 10:13] LABS: ALANINE AMINOTRANSFERASE 52 U/L (9-52); ALKALINE PHOSPHATASE 63 U/L (38-126); ANION GAP 10 (5-19); ASPARTATE AMINO TRANSFERASE 90 U/L (14-36); BILIRUBIN,DIRECT 0.3 mg/dL (0.0-0.4); BILIRUBIN,TOTAL 0.6 mg/dL (0.2-1.3); BLOOD UREA NITROGEN 34 mg/dL (7-20); CALCIUM 8.6 mg/dL (8.4-10.2); CARBON DIOXIDE 24 mmol/L (22-30); CHLORIDE 109 mmol/L (98-107); GLUCOSE 197 mg/dL (75-110); POTASSIUM 4.7 mmol/L (3.6-5.0); SODIUM 143.3 mmol/L (137-145); TOTAL PROTEIN 6.8 g/dL (6.3-8.2)
[2017-10-04] MEDS ORDERED: FUROSEMIDE INJ/PF 40 MG/4 ML SDV IV ONE (11:14)
[2017-10-04] MEDS ORDERED: HYDRALAZINE HCL INJ/PF 20 MG/1 ML SDV IV PRN (12:19)
[2017-10-04] MEDS ORDERED: ENOXAPARIN SODIUM INJ 30 MG/0.3 ML DISP.SYRIN SUBCUT ONE (13:30)
--- NOTE | 2017-10-04 13:31 | EKG REPORT ---
SEVERITY:- ABNORMAL ECG - ATRIAL-PACED COMPLEXES MULTIFORM VENTRICULAR PREMATURE COMPLEXES PROBABLE LVH WITH SECONDARY REPOL ABNRM : Confirmed by: Darius Hernandez MD 04-Oct-2017 13:31:18
--- NOTE | 2017-10-04 17:13 | PDOC H&P ---
History of Present Illness Admission Date/PCP: 10/04/17 13:12 Patient complains of: SHORTNESS OF BREATH History of Present Illness: HAYLEY URENA is a 61 year old female who presented to the emergency department with a 2 hour history of shortness of breath. The patient states that she woke up this morning feeling short of breath and became increasingly worse over the course of the day. The patient states that she remained in bed most of the day. She took Claritin in an attempt to alleviate her symptoms, but it offered no relief. The patient's called EMS when the patient told him she was having a significantly harder time breathing compared to earlier in the morning. Of note, the patient was recently admitted to [facility] in July 2017 for a CHF exacerbation. PMH includes CHF, 2-3(?) stents, pacemaker, HTN, HLD En route to the hospital, the patient received 1 inch of transdermal nitro paste and 1.25 mg Vasotec. EMS reports that her BP was significantly elevated ( SBP>200). Upon arrival to [facility] ED, her BP 125/55 HR 64 RR 23 SPO2 100% on BIPAP T 97.5. CXR revealed RLL opacification and cardiomegaly, likely pulmonary edema. The patient was treated with 40mg Lasix IV. EKG shows atrial pacing, inverted T waves in the inferior lateral leads (unchanged from previous EKG in July 2017). Troponin 0.033. Upon assessment, the patient is resting comfortably in bed on BiPAP, settings: 12/6 FiO2 28% VT 365-410. The patient is alert and oriented 3, she is able to answer all questions without pause. She denies chest pain, endorses mild shortness of breath. She states that she feels markedly better compared to earlier this morning. Crackles are auscultated in bilateral lower lung bases R>L. No peripheral edema. Normal s1s2 , no murmur/rubs/gallops. Of note, the patient states that she was at a cook out yesterday and consumed a hot dog and some barbecue ribs. Plan to admit to hospitalist service for pulmonary edema. Past Medical History Cardiac Medical History: Reports: Atrial Fibrillation, Congestive Heart Failure , Hyperlipidema, Hypertension Past Surgical History Past Surgical History: Reports: Section, Other - PACEMEKER PLACEMENT Social History Information Source: Patient Lives with: Spouse/Significant other Smoking Status: Never Smoker Frequency of Alcohol Use: None Hx Recreational Drug Use: No Drugs: None Hx Prescription Drug Abuse: No - Advance Directive Resuscitation Status: Full Code Family History Family History: Hypertension Parental Family History Reviewed: Yes Children Family History Reviewed: Yes Sibling(s) Family History Reviewed.: Yes Medication/Allergy Home Medications: Aspirin [Aspirin EC] 81 mg PO DAILY 10/04/17 Carvedilol [Coreg 25 mg Tablet] 25 mg PO Q12 10/04/17 Clonidine HCl [Catapres 0.1 mg Tablet] 0.1 mg PO BID 10/04/17 Clopidogrel Bisulfate [Plavix 75 mg Tablet] 75 mg PO DAILY 10/04/17 Fluticasone Propionate [Flonase Nasal [place] 50 Mcg/[place] 16 gm] 2 spray NASL DAILY 10/04/17 Furosemide [Lasix 40 mg Tablet] 40 mg PO DAILY 10/04/17 Isosorbide Mononitrate [Imdur 60 mg Tablet.er] 60 mg PO DAILY 10/04/17 Magnesium Oxide [Mag-Ox 400 mg Tablet] 400 mg PO DAILY 10/04/17 Potassium Chloride [Klor-Con M20] 20 meq PO DAILY 10/04/17 Sacubitril/Valsartan [Entresto 49 mg/51 mg Tablet] 1 tab PO Q12 10/04/17 Simvastatin [Zocor 40 mg Tablet] 40 mg PO QHS 10/04/17 Spironolactone [Aldactone 25 mg Tablet] 25 mg PO DAILY 10/04/17 Allergies/Adverse Reactions: steroids Allergy (Uncoded 08/18/17 21:46) Review of Systems All systems: reviewed and no additional remarkable complaints except as stated Physical Exam Vital Signs: Temp Pulse Resp BP Pulse Ox 97.7 F 65 20 154/67 H 100 10/04/17 15:09 10/04/17 15:09 10/04/17 15:09 10/04/17 15:09 10/04/17 15:50 Pulse Oximeter Continuous Start: 10/04/17 11: 51 Freq: RTQ4 Status: Active Document 10/04/17 15:50 TPO (Rec: 10/04/17 16:02 TPO [email or web address]) Pulse Oximetry Assessment Oxygen Saturation (92-100) 100 Oxygen Flow Rate (L/min) 1 Oxygen Delivery Method Nasal Cannula Fraction of Inspired Oxygen (FIO2) 24 Equipment Usage Initial Set Up Continuous SpO2 Machine # 10 General appearance: PRESENT: no acute distress Head exam: PRESENT: atraumatic Eye exam: PRESENT: conjunctiva pink, PERRLA Mouth exam: PRESENT: moist Neck exam: PRESENT: full ROM Respiratory exam: PRESENT: clear to auscultation jagdeep, symmetrical, unlabored Cardiovascular exam: PRESENT: other - ATRIAL PACED Pulses: PRESENT: normal radial pulses, +1 pedal pulses bilateral GI/Abdominal exam: PRESENT: soft. ABSENT: tenderness Rectal exam: PRESENT: deferred Extremities exam: PRESENT: full ROM. ABSENT: pedal edema Musculoskeletal exam: PRESENT: ambulatory, full ROM Neurological exam: PRESENT: alert, awake, oriented to person, oriented to place , oriented to time, oriented to situation Psychiatric exam: PRESENT: appropriate affect Skin exam: PRESENT: dry, intact, normal color, warm Results Laboratory Results: 10/04/17 13:20 Troponin I 0.055 Impressions: Chest X-Ray 10/04/17 09:11 IMPRESSION: Moderate cardiomegaly asymmetrical opacity right lower lung zone. More prominent than on the previous chest x-ray. Asymmetrical pulmonary edema or developing infiltrate included in the differential. Status: Imported from PACS Assessment & Plan - Diagnosis (1) Acute respiratory failure Qualifiers: Respiratory failure complication: hypoxia Qualified Code(s): J96.01 - Acute respiratory failure with hypoxia Is this a current diagnosis for this admission?: Yes Plan: Secondary to pulmonary edema stemming from a CHF exacerbation CXR shows RLL opacity, likely demonstrating pulmonary edema Previous admission in 07/2017 for similar diagnoses, was instructed to increase lasix to BID dosing and f/u with fuel cell engineer. Patient states she went to see fuel cell engineer, but he did not change any of her medications. The patient continued on daily Lasix. EKG shows atrial paced rhythm. T wave inversion in inferiolateral leads. Relatively unchanged from previous EKG in 07/2017 Troponin < 0.033, continue to trend. Patient denies chest pain. Diuresed in ED, plan to repeat IV lasix in AM. Repeat CXR in AM. Continue BIPAP to maintain SPO2>92%, wean to nasal cannula as tolerated (2) CHF (congestive heart failure) Qualifiers: Heart failure type: unspecified Heart failure chronicity: acute on chronic Qualified Code(s): I50.9 - Heart failure, unspecified Is this a current diagnosis for this admission?: Yes Plan: History of CHF ECHO from previous hospitalization reveals LVEF ~30%, moderate global hypokinesis to the left ventricle, mild aortic regurg, mild to moderate tricuspid regurg, moderate pulmonary hypertension. Continue on home medication regimen with the exception of p.o. Lasix Diuresed in the emergency department with 40 mg IV Lasix Plan to diurese again in a.m. with 40 mg IV Lasix. If able to wean from BIPAP, will discharge patient home on BID lasix and follow up with fuel cell engineer. - Time Time Spent: 30 to 50 Minutes Medications reviewed and adjusted accordingly: Yes Anticipated discharge: Home Within: within 48 hours - Inpatient Certification Based on my medical assessment, after consideration of the patient's comorbidities, presenting symptoms, or acuity I expect that the services needed warrant INPATIENT care.: Yes I certify that my determination is in accordance with my understanding of Medicare's requirements for reasonable and necessary INPATIENT services [42 CFR 412.3e].: Yes Medical Necessity: Risk of Complication if Not Cared For in Hospital - Plan Summary Plan Summary: ADMIT TO HOSPITALIST. CONTINUE DIURESIS. BIPAP FOR SPO2 > 93%. WEAN TO NASAL CANNULA WHEN POSSIBLE. LIKELY D/C WITHIN 48 HOURS.
[2017-10-04] MEDS ORDERED: SIMVASTATIN 40 MG TABLET PO SCH (22:00)
[2017-10-04] MEDS: SACUBITRIL/VALSARTAN 49 MG/51 MG TABLET PO SCH (22:45)
[2017-10-04] MEDS: CARVEDILOL 12.5 MG TABLET PO SCH (22:46)
[2017-10-04] MEDS: CLONIDINE HCL 0.1 MG TABLET PO SCH (22:47)
--- NOTE | 2017-10-04 23:30 | CONSULTATION REPORT E ---
Consultation Report NAME: HAYLEY URENA : 1955 AGE: 61Y DATE: 10/04/2017 ROOM: 309 A TO: ASAF HAYWOOD M.D. FROM: HA HA M.D. Requesting Physician REASON FOR CONSULTATION: Pulmonary edema/hypertensive crisis. HISTORY OF PRESENT ILLNESS: The patient is a 61-year-old -[place] female with known history of hypertension, noncompliance, cardiomyopathy, coronary artery disease, paroxysmal atrial fibrillation, and history of permanent pacemaker placement for bradycardia in the past states that she was visiting here from [place]. She did not take her morning Entresto and subsequently started having shortness of breath with PND but no leg edema. There was no chest pain or discomfort. She had shortness of breath which increased and the patient called 911. When the paramedics went there, the paramedics found that her blood pressure was greater than 200 systolic and she was having trouble breathing. They put 1 inch of transdermal Nitropaste and gave her 1.25 mg paste to take intravenous and also put her on the BiPAP. In the emergency room her O2 sat was 100% on BiPAP, her temperature was 97.5, and her heart rate was 64 beats per minute. Her blood pressure was 125/55. The patient also received IV Lasix and now at present is comfortable and wants to go home. Her chest x-ray has been read as asymmetric pulmonary edema versus infiltrates, but the patient denies any cough or sputum production or fever suggestive of a pneumonic process. At present the patient denies any chest pain or discomfort. There is no shortness of breath. There is no PND, orthopnea, and no leg edema. She denies any anginal symptoms. There is no syncope or presyncope. There are no TIA or CVA symptoms. PAST MEDICAL HISTORY: Positive for a history of coronary artery disease, history of KS, and history of 3 stents - the vessels not known. She was admitted here in 07/2017 with congestive heart failure and her EF was found to be 35-40%, that is moderately depressed. She, at that time, had mild to moderate tricuspid regurgitation with a right ventricular systolic pressure of 59 mmHg and also moderate mitral regurgitation. After that, as per her tax audit manager in [place], Dr. Justice, whom I spoke to states that the patient has been noncompliant with medications and has several episodes of uncontrolled hypertension/hypertensive crisis leading to congestive heart failure. She also after July, about 2 months ago, after she went back to [place] from here after a July admission she had a cardiac catheterization which showed that the stents were patent and she had nonobstructive coronary artery disease. He also states that she has significant MR and at that time the repeat echo showed that the pulmonary hypertension was much less in the 40s, which is mild. He states that she has significant mitral regurgitation. She also has a history paroxysmal atrial fibrillation, at present in sinus rhythm. She also had a permanent pacemaker for bradycardia, most likely sick sinus syndrome. At present she is A paced with a weak capture. She has a history of hypertension, history of noncompliance. No history of diabetes mellitus. No history of thyroid disease. She has no history of asthma, COPD. She has a past history of congestive heart failure, history of cardiomyopathy, history of coronary artery disease as mentioned earlier. She also has hyperlipidemia. There is no history of thyroid disease. PAST SURGICAL HISTORY: Positive for and permanent pacemaker placement. SOCIAL HISTORY: The patient has never smoked and there is no history of EtOH abuse. FAMILY HISTORY: Positive for hypertension, negative for coronary artery disease. ADVANCE DIRECTIVES: The patient is a full code. Her is the surrogate healthcare decision maker. ALLERGIES: She says she is allergic to STEROIDS, which causes her anaphylaxis, as per the patient. MEDICATIONS: 1. Aspirin 324 mg p.o. x1 and aspirin 81 mg p.o. daily. 2. Coreg 25 mg p.o. q.12 hours. 3. Clonidine 0.1 mg p.o. q.12 hours. 4. Plavix 75 mg p.o. daily. 5. Lovenox 30 mg subcutaneously daily. 6. Lasix 40 mg IV push x2, once in the ER and once on the floor. 7. Hydralazine 10 mg IV q.6 hours p.r.n. 8. Isosorbide mononitrate 60 mg p.o. daily. 9. Magnesium oxide 400 mg p.o. daily. 10. Entresto 49/51 mg 1 tablet p.o. q.12 hours. 11. Zocor 40 mg p.o. at bedtime. 12. Spironolactone 25 mg p.o. daily. REVIEW OF SYSTEMS: CONSTITUTIONAL: Denies any fever, chills, or rigors. Complains of generalized fatigue and weakness. HEAD: Denies headaches or head injury. EYES: No history of amblyopia or diplopia. No history of amaurosis fugax. EARS: No history of hearing loss. No history of tinnitus. No history of recurrent ear infections. NOSE: No history of nasal polyps. No history of nosebleeds. No history of hay fever. MOUTH: No history of altered taste sensation. No ulcers in the mouth. No bleeding from the gums. THROAT: There is no odynophagia or dysphagia. There are no recurrent sore throats. SKIN: There is no pruritus. There is no yellowish discoloration of the skin. There is no skin cancer. There is no psoriasis. NECK: No history of painless or painful swelling of the neck. No lymphadenopathy and no goiter. LUNGS: No history of asthma or COPD. No history of sleep apnea. No history of pulmonary embolism. No history of cough or sputum production. The patient did have some wheezing when she had shortness of breath with orthopnea and PND at that time, which subsequently resolved. There is no pleuritic chest pain. There is no hemoptysis. CARDIAC: History of hypertension. The patient has had noncompliance and had several spikes in the blood pressure due to noncompliance and has led her into heart failure. She has history of congestive heart failure, history of cardiomyopathy, history of coronary artery disease, history of Mi in the past and stents. No recent anginal symptoms. Her cardiac catheterization recently showed that there were patent stents with nonobstructive coronary artery disease. She has a cardiomyopathy with moderately depressed LV ejection fraction. She has a history of paroxysmal atrial fibrillation and history of bradycardia for permanent pacemaker placement. There is no leg edema. Recent symptoms of uncontrolled blood pressure causing acute pulmonary edema with PND, orthopnea, but no palpitations. There was also some wheezing when she had the heart failure. There is no syncope. There is no leg edema. The patient states that there is no recurrence of atrial fibrillation. METABOLIC: History of hyperlipidemia present. She has mild obesity. No history of gout. RENAL: She has some chronic kidney disease stage 3 most likely. She has no symptoms of UTI. No history of hematuria, pyuria, or dysuria. ENDOCRINE: No history of diabetes mellitus. No history of thyroid disease. No history of polydipsia or polyuria. No history of heat or cold intolerance. No history of hirsutism. No history of excessive sweating. GASTROINTESTINAL: No history of GERD. No history of peptic ulcer disease. No history of GI bleed. No history of jaundice. No history of fatty food intolerance. No history of cirrhosis. No altered bowel movements. CENTRAL NERVOUS SYSTEM: No history of TIA or CVA. No history of headaches, migraines, or seizures. No gait imbalance. PSYCHIATRIC: No history of anxiety or depression. No history of suicidal ideation. No history of homicidal ideation. MUSCULOSKELETAL: Denies arthritis or collagen vascular disease. VASCULAR: No history of calf or buttock claudication. No DVT. HEMATOLOGICAL: No history of bleeding diathesis. No history of clotting disorders. PHYSICAL EXAMINATION: GENERAL: On examination the patient is mildly overweight. She is in no acute distress. VITAL SIGNS: She is afebrile with a temperature of 97.7 degrees Fahrenheit, her pulse is 65 beats per minute, blood pressure 154/67, her respirations are 20 per minute, O2 saturations are 100% on 2 liters nasal cannula. HEENT: Head is atraumatic, normocephalic. Eyes: Pupils are equal, round and regular, reactive to light and accommodation. Extraocular movements are normal. There is no conjunctival pallor. There is no scleral icterus. Ears: Tympanic membranes are intact, external auditory canals are clear. Nose: There is no deviated nasal septum. There is no inflammation of the nasal mucous membrane. Mouth: Mucous membranes of the mouth are moist. Tongue is moist. There are no ulcers. There is no bleeding from the gums. Throat: There is no redness of the oropharynx. There are no exudates. SKIN: There is no skin rashes. There are no skin lesions. There is no petechiae or ecchymosis. NECK: Supple. At present there is no JVD. There is no lymphadenopathy. There is no goiter. Carotids are equal. There is no bruit. Trachea is central. LUNGS: Clear to auscultation and percussion. There is no chest wall tenderness. HEART: S1, S2 is heard. There is no S3 gallop. There is no S4 gallop. There is a systolic murmur of mitral regurgitation present. There is no *------* regurgitation. There is no aortic stenosis or aortic regurgitation. There is no rub. ABDOMEN: Soft, nontender. There is no hepatosplenomegaly. Bowel sounds are well heard. There are no tender areas or masses. EXTREMITIES: Femorals are slightly diminished. Leg pulses are diminished. There are no femoral bruits. There is no pedal edema. There is no cyanosis or clubbing. There is no DVT or cellulitis. There is no calf tenderness. CENTRAL NERVOUS SYSTEM: The patient is conscious, awake, alert and oriented x3 with no focal deficits. PSYCHIATRIC: The patient's judgment and insight are intact. Her affect is normal. DIAGNOSTICS: The patient's chest x-ray shows cardiomegaly and asymmetric infiltrate in the right lower lobe, possibly asymmetric pulmonary edema. It is possible because she has had recurrent episodes of CHF. Clinically there is no evidence of pneumonia. She has sinus rhythm with intermittent atrial paced rhythm. There are PVCs present. There is probable LVH with secondary repolarization changes. Some of the QRS complexes have T-wave inversion possibly due to "cardiac memory." The patient's sodium is 143.3, potassium 4.7, chloride 109, CO2 is 24. The patient's BUN is 34, creatinine is 1.47, GFR is 43. Her glucose is 197. Her calcium is 8.6. Her liver function test show elevated AST of 90. The patient's troponin I is 0.031, 0.055, and 0.80. Her NT-proBNP is 2010. Her albumin is 4, total protein is 6.8. White count is 4300, hemoglobin is 12.7, hematocrit is 38.9, and her platelet count is 175,000. IMPRESSION: 1. Hypertensive emergency/crisis. At present blood pressure controlled but not optimally. 2. Acute pulmonary edema secondary to uncontrolled hypertension, cardiomyopathy, and mitral regurgitation. 3. Paroxysmal atrial fibrillation, at present in sinus and also atrial paced rhythm. 4. Coronary artery disease with history of KS with stents x3 with recent cath showing no significant stenosis of the stents with nonobstructive coronary artery disease. 5. Cardiomyopathy with moderately reduced LV ejection fraction. 6. Mitral regurgitation significant, at least moderate. 7. Permanent pacemaker placement. Not this is not an AICD it is a permanent pacemaker. 8. Hyperlipidemia. 9. Noncompliance. 10. Chronic kidney disease, most likely stage 3. I do not have prior labs. 11. Mild pulmonary hypertension as per her tax audit manager. It used to be moderate pulmonary hypertension with right ventricular systolic pressure of 59 mmHg by echo in 07/2017 when she was admitted here, but Dr. Justice her tax audit manager states that it has come down but she still has severe mitral regurgitation. RECOMMENDATIONS: Would continue the patient on Entresto and Coreg and aspirin and Imdur. Would recommend adding hydralazine. Also would continue to keep the patient on clonidine. Would not increase the patient's clonidine to more than 0.2 mg per day (she is receiving 0.1 mg p.o. q.12 hours) since a dose greater than 0.3 mg per day may cause significant rebound if she misses a dose, especially given the noncompliance. Would recommend adding hydralazine if the blood pressure is still not controlled. Echo findings were discussed with the patient. Discussed the patient with Dr. Justice from [place], her tax audit manager. TIME SPENT: Note the patient was seen at 3 p.m. today with 59 minutes spent on the patient with more than 50% of the time spent on direct patient care. Medically decision is of high complexity. Her medications have been reviewed and suggestions made to add medications. Discussed with the hospitalist. Will discuss with you. The patient is anxious to go home. If her blood pressure controlled then we might send her home. The patient states that in the past when she has this, BiPAP has helped her although she has no COPD or asthma or sleep apnea. Would recommend that the patient have a sleep study done in [place] when she gets back. DICTATING PHYSICIAN: ASAF HAYWOOD M.D. [id number] PHY#: [id number] ID: [id number] JOB#: [id number] ACCT: [id number] cc:ASAF HAYWOOD M.D. >
[2017-10-05] MEDS ORDERED: FUROSEMIDE INJ/PF 40 MG/4 ML SDV IV ONE (05:00)
[2017-10-05 05:13] LABS: HEMATOCRIT 36.6 % (36.0-47.0); HEMOGLOBIN 12.3 g/dL (12.0-15.5); MEAN CORPUSCULAR HEMOGLOBIN 31.4 pg (27.0-33.4); MEAN CORPUSCULAR HGB CONC 33.5 g/dL (32.0-36.0); MEAN CORPUSCULAR VOLUME 94 fl (80-97); PLATELET COUNT 149 10^3/uL (150-450); RED CELL DISTRIBUTION WIDTH 16.3 % (11.5-14.0); WHITE BLOOD COUNT 3.3 10^3/uL (4.0-10.5)
[2017-10-05 05:33] LABS: ANION GAP 9 (5-19); BLOOD UREA NITROGEN 34 mg/dL (7-20); CALCIUM 9.3 mg/dL (8.4-10.2); CARBON DIOXIDE 26 mmol/L (22-30); CHLORIDE 110 mmol/L (98-107); GLUCOSE 99 mg/dL (75-110); POTASSIUM 4.3 mmol/L (3.6-5.0)
[2017-10-05] MEDS ORDERED: SPIRONOLACTONE 25 MG TABLET PO SCH (10:00)
[2017-10-05] MEDS ORDERED: ISOSORBIDE MONONITRATE 60 MG TAB.ER.24H PO SCH (10:00)
[2017-10-05] MEDS ORDERED: ASPIRIN 81 MG TABLET, ENT COATED PO SCH (10:00)
[2017-10-05] MEDS ORDERED: MAGNESIUM OXIDE 400 MG TABLET PO SCH (10:00)
[2017-10-05] MEDS ORDERED: CLOPIDOGREL BISULFATE 75 MG TABLET PO SCH (10:00)
[2017-10-05] MEDS ORDERED: ENOXAPARIN SODIUM INJ 30 MG/0.3 ML DISP.SYRIN SUBCUT SCH (10:00)
[2017-10-05] MEDS: CLONIDINE HCL 0.1 MG TABLET PO SCH (10:06)
[2017-10-05] MEDS: SACUBITRIL/VALSARTAN 49 MG/51 MG TABLET PO SCH (10:07)
[2017-10-05] MEDS: CARVEDILOL 12.5 MG TABLET PO SCH (10:08)
--- NOTE | 2017-10-05 10:32 | RADIOLOGY REPORT (SQ) ---
EXAM DESCRIPTION: CHEST SINGLE VIEW COMPLETED DATE/TIME: 10/05/2017 10:14 am REASON FOR STUDY: PULMONARY EDEMA COMPARISON: Chest films 10/04/2017, 08/18/2017 EXAM PARAMETERS: NUMBER OF VIEWS: One view. TECHNIQUE: Single frontal radiographic view of the chest acquired. RADIATION DOSE: NA LIMITATIONS: None. FINDINGS: LUNGS AND PLEURA: No opacities, masses or pneumothorax. No pleural effusion. MEDIASTINUM AND HILAR STRUCTURES: No masses. Contour normal. HEART AND VASCULAR STRUCTURES: Stable massive cardiomegaly BONES: No acute findings. HARDWARE: Unchanged left-sided dual lead pacemaker OTHER: No other significant finding. IMPRESSION: Stable cardiomegaly and dual lead pacemaker. No focal infiltrates or pleural effusions. TECHNICAL DOCUMENTATION: JOB ID: [id number] [employer]- All Rights Reserved Reading location - IP/workstation name: [email or web address]
[2017-10-05 12:02] VITALS: BP 141/48
== END 2017-10-05 13:18 | disposition home or self-care (01) ==
LOC: ER 08:59 → INTOOBSV 13:12 → EH 13:12 → 3N 15:20
PROVIDERS: ADMIT Internal Medicine; ATTEND Internal Medicine
DX: J96.01 Acute respiratory failure with hypoxia (principal); N17.9 Acute kidney failure, unspecified; I13.0 Hypertensive heart and chronic kidney disease with heart failure and stage 1 through stage 4 chronic kidney disease, or unspecified chronic kidney disease; I16.9 Hypertensive crisis, unspecified; I50.9 Heart failure, unspecified; N18.9 Chronic kidney disease, unspecified; I27.20 Pulmonary hypertension, unspecified; I34.0 Nonrheumatic mitral (valve) insufficiency; I48.0 Paroxysmal atrial fibrillation; E78.5 Hyperlipidemia, unspecified; I42.9 Cardiomyopathy, unspecified; I25.10 Atherosclerotic heart disease of native coronary artery without angina pectoris; Z95.0 Presence of cardiac pacemaker; Z95.5 Presence of coronary angioplasty implant and graft; Z91.14 Patient's other noncompliance with medication regimen; Z79.02 Long term (current) use of antithrombotics/antiplatelets
CPT/HCPCS: 93005; 99285; 96374; 36415 ×2; 87040; 85025; 85027; 80048; 80053; 84484; 83036; 83880 ×2; 71045 ×2; 93010; 94660; 94762 ×2; G0378 ×3; A9270 ×11; J1940 ×2; J1650 ×2